=== PATIENT | female | born 2000 | race Caucasian/White ===

== ENCOUNTER 2022-04-21 01:52 | Emergency (ER) | payer BC, SELFPAY ==
[2022-04-21 02:10] VITALS: BP 132/92; PULSE 117; RESP 17; TEMP 36.7; O2SAT 98; BMI 27.3
[2022-04-21 02:37] VITALS: BP 132/92; PULSE 117; RESP 17; TEMP 36.7; O2SAT 98; BMI 27.3
== END 2022-04-21 06:02 | disposition left against medical advice (07) ==
PROVIDERS: Emergency Provider Emergency Medicine
DX: Z04.1 Encounter for examination and observation following transport accident (principal)
CPT/HCPCS: 99281

== ENCOUNTER 2022-11-12 03:25 | Emergency (ER) | payer OTHER, SELFPAY ==
[2022-11-12 03:32] VITALS: BP 118/73; PULSE 92; RESP 18; TEMP 36.4; O2SAT 98
[2022-11-12 03:35] VITALS: BP 118/73; PULSE 88; RESP 18; TEMP 36.8; O2SAT 96; BMI 27.6
--- NOTE | 2022-11-12 03:50 | PC.NURSE ---
Patient alert and oriented x4. Patient arrived ambulatory reporting an accidental fall while walking on uneven ground. Visible laceration on nasal bridge and superficial laceration on forehead. Reports no LOC or dizzinesses. Vitals stable. Call ayala within reach. Will continue to follow plan of care
--- NOTE | 2022-11-12 04:05 | ED_ITS ---
[facility] - Fall General Chief Complaint: Fall Stated Complaint: face inj/cuts Time Seen by Provider: 11/12/22 03:51 Source: patient Mode of arrival: ambulatory History of Present Illness HPI Narrative: 22-year-old female who is mildly intoxicated but has a safe ride who is at the bedside presents with having tripped earlier in the in the evening over uneven ground and had a positive head strike but denies any loss of consciousness. She is up-to-date on all vaccinations. Related Data Allergies Allergy/AdvReac Type Severity Reaction Status Date / Time No Known Allergies Allergy Verified 04/21/22 02:15 Review of Systems Review of Systems: Pertinent positives and negatives as stated in [facility] Past Medical History Source: nursing notes reviewed Social History Social History Alcohol intake: current Alcohol intake frequency: a few times a month Alcohol type: hard liquor Smoked in Last 30 Days: No Use of substances other than those prescribed or required for medical reasons: No Patient : No Physical Exam Vital Signs: Vital Signs: Last Vital Signs Temp 98.3 F 11/12/22 03:35 Pulse 88 11/12/22 03:35 Resp 18 11/12/22 03:35 BP 118/73 11/12/22 03:35 Pulse Ox 96 11/12/22 03:35 O2 Del Method Room Air 11/12/22 03:35 BMI result Body Mass Index 27.6 VITAL SIGNS: Reviewed. GENERAL: Well developed, well nourished, in no acute distress. HEAD: Normocephalic/there is an arcing superficial abrasions/contusion over the right forehead EYES: PERRLA, EOMI EARS: Ext canals without abnormality, TMs non-bulging and non-erythematous NOSE: There is an abrasion over the nasal bridge, no septal hematoma, there is also superficial abrasion/contusion over the rt ala with a superficial gouge at the upper lip portion of the right nostril OROPHARYNX: no oral lesions noted, posterior pharynx clear NECK: Supple, no adenopathy LUNGS: Normal breath sounds. No adventitious sounds or accessory muscle use. SpO2<96> CARDIOVASCULAR: Regular rate and rhythm without noted murmurs ABDOMEN: Soft, non-tender, non-distended with bowel sounds. MUSCULOSKELETAL: No tenderness, deformities, or effusions noted on gross inspection. EXTREMITIES: No cyanosis, clubbing or edema; EXTENSIVE SUPERFICIAL ABRASIONS TO THE LEFT LOWER EXTREMITY THAT EXTENDS FROM THE KNEE DISTAL TO MID TIBIA, in addition, there is superficial abrasions over the proximal portion of the anterior right tibia there are clean on inspection and have already had Band- Aids applied.. SKIN: Inspection of the skin reveals no rashes NEUROLOGIC: Alert and oriented x 4. Strength and sensation to light touch were grossly intact x 4. Medical Decision Making Medical Decision Making MDM Narrative: 22-year-old female with history and clinical presentation consistent with alcohol intoxication and unsteady fall but mechanical in nature without loss of consciousness. All injuries are superficial and unfortunately the gouge just inferior to the right nostril is not appropriate for suturing and patient was recommended to continue to apply antibiotic ointment and not let that area dry out and it will eventually close. She is otherwise discharged home after receiving combination analgesics and bacitracin. Differential Diagnosis Please see the discussion above Discharge Plan Discharge Clinical Impression: Alcohol intoxication, Superficial abrasion, Fall Patient Disposition: Home, Self-Care Instructions: Abrasion (ED) Additional Instructions: 1. Recommend [id number] Tylenol and ibuprofen for pain control. 2. Please keep the wound on your right upper lip near your right nostril well moisturized with antibiotic ointment. 3. Follow-up with your primary care provider. Return to the ER for any worsening symptoms.
[2022-11-12] MEDS: Acetaminophen 325 MG TABLET 975 MG PO (04:15)
[2022-11-12] MEDS: Ibuprofen 400 MG TABLET PO (04:15)
[2022-11-12] MEDS: Bacitracin Oint 0.9 GM PACKET 1 APPL TOPICAL (04:16)
== END 2022-11-12 04:22 | disposition home or self-care (01) ==
LOC: HO.ED 04:17
PROVIDERS: Emergency Provider Student in an Organized Health Care Education/Training Program
DX: S00.81XA Abrasion of other part of head, initial encounter (principal); F10.129 Alcohol abuse with intoxication, unspecified; Y90.9 Presence of alcohol in blood, level not specified; W01.0XXA Fall on same level from slipping, tripping and stumbling without subsequent striking against object, initial encounter; Y93.9 Activity, unspecified; Y92.9 Unspecified place or not applicable; Y99.9 Unspecified external cause status
CPT/HCPCS: 99283; 99284